=== PATIENT | female | born 1955 | race Caucasian/White ===

== ENCOUNTER 2021-07-29 08:00 | Outpatient (CLI) | payer MEDICARE, OTHER ==
--- NOTE | 2021-07-29 12:28 | XRAY Report ---
PROCEDURE: Knee 3 View LT INDICATIONS: LACERATION W/O FB, LEFT KNEE TECHNIQUE: 3 views of the left knee(s) were acquired. COMPARISON: None. FINDINGS: BONES/JOINT: No acute, displaced fracture or dislocation. Trace suprapatellar joint effusion. Superio r patellar enthesophyte. Mild to moderate tricompartment osteophytosis. Mild to moderate narrowing of the medial compartment joint space. SOFT TISSUES: Overlying clothing. No definitive foreign body. IMPRESSION: 1.Knee degeneration as detailed above. Reviewed by: Magno Love MD on 07/29/2021 12:26 PM PDT Approved by: Magno Love MD on 07/29/2021 12:26 PM PDT Station ID: [id number]
== END 2021-07-29 23:59 | disposition home or self-care (01) ==
LOC: DI.N 08:00
PROVIDERS: ATTEND Nurse Practitioner
DX: S81.012A Laceration without foreign body, left knee, initial encounter (principal); M17.12 Unilateral primary osteoarthritis, left knee; M25.462 Effusion, left knee; M25.862 Other specified joint disorders, left knee